=== PATIENT | male | born 1970 | race Caucasian/White ===

== ENCOUNTER 2021-04-20 01:38 | Inpatient (IN) | payer OTHER ==
[~2021-04-20] VITALS: Ht 175.3 cm; Wt 112.7 kg
[2021-04-20] MEDS ORDERED: GABAPENTIN800 MG PO (15:16)
[2021-04-20] MEDS ORDERED: ATORVASTATIN CA40 MG PO (15:17)
[2021-04-20] MEDS ORDERED: ABILIFY 5 MG TAB5 MG PO (15:17)
[2021-04-20] MEDS ORDERED: CYCLOBENZAPRINE10 MG PO (15:18)
[2021-04-20] MEDS ORDERED: DESYREL 50 MG T50 MG PO (15:18)
[2021-04-20] MEDS ORDERED: METFORMIN HCL1000 MG PO (15:19)
[2021-04-20] MEDS ORDERED: SERTRALINE HCL50 MG PO (15:20)
[2021-04-20] MEDS ORDERED: LISINOPRIL10 MG PO (15:22)
[2021-04-20] MEDS ORDERED: FISH OIL 1,0001 EACH PO (15:24)
[2021-04-20] MEDS ORDERED: ASPIRIN81 MG PO (16:24)
[2021-04-20 17:20] LABS: HEMOGLOBIN 16.9 gm/dl (14.0-17.5); RED BLOOD COUNT 5.05 M/UL (4.20-5.50); WHITE BLOOD COUNT 6.8 K/UL (4.5-11.0)
[2021-04-21 07:34] LABS: HEMOGLOBIN 16.2 gm/dl (14.0-17.5); RED BLOOD COUNT 4.85 M/UL (4.20-5.50)
[2021-04-21 08:24] LABS: BUN/CREATININE RATIO 20 (0-10)
[2021-04-22 03:05] LABS: HEMOGLOBIN 15.5 gm/dl (14.0-17.5); RED BLOOD COUNT 4.9 M/UL (4.20-5.50); WHITE BLOOD COUNT 6.2 K/UL (4.5-11.0)
[2021-04-22 03:23] LABS: BUN/CREATININE RATIO 20 (0-10)
[2021-04-23 03:55] LABS: HEMOGLOBIN 16.2 gm/dl (14.0-17.5); RED BLOOD COUNT 4.87 M/UL (4.20-5.50); WHITE BLOOD COUNT 5.6 K/UL (4.5-11.0)
[2021-04-23 04:15] LABS: BUN/CREATININE RATIO 19 (0-10)
[2021-04-23] MEDS ORDERED: NOVOLOG FL100 UNIT/1 INJ (12:17)
[2021-04-23] MEDS ORDERED: LANTUS SOL100 UNIT/1 SQ (12:17)
[2021-04-23] MEDS ORDERED: ELIQUIS 5 MG TAB5 MG PO (12:17)
[2021-04-23] MEDS ORDERED: NITROGLYCERIN0.4 MG SL (12:17)
[2021-04-23] MEDS ORDERED: BETAPACE 80MG T80 MG PO (12:17)
== END 2021-04-23 19:55 | disposition home or self-care (01) | DRG 309 ==
LOC: PROG CARE 15:09
PROVIDERS: Internal Medicine; Physician Assistant Medical; ADMIT Internal Medicine
PROC: 5A2204Z Restoration of Cardiac Rhythm, Single (ICD-10-PCS; principal; 2021-04-20)
PROC: B24BZZZ Ultrasonography of Heart with Aorta (ICD-10-PCS; 2021-04-21)
DX: I48.92 Unspecified atrial flutter (principal); J98.11 Atelectasis; I10 Essential (primary) hypertension; E11.65 Type 2 diabetes mellitus with hyperglycemia; E11.40 Type 2 diabetes mellitus with diabetic neuropathy, unspecified; F17.210 Nicotine dependence, cigarettes, uncomplicated; G47.33 Obstructive sleep apnea (adult) (pediatric); I95.9 Hypotension, unspecified; I47.1 Supraventricular tachycardia; E66.01 Morbid (severe) obesity due to excess calories; E78.5 Hyperlipidemia, unspecified; Z88.0 Allergy status to penicillin; Z88.1 Allergy status to other antibiotic agents; Z90.49 Acquired absence of other specified parts of digestive tract; Z98.890 Other specified postprocedural states; Z79.84 Long term (current) use of oral hypoglycemic drugs; Z82.49 Family history of ischemic heart disease and other diseases of the circulatory system; Z80.8 Family history of malignant neoplasm of other organs or systems; Z79.82 Long term (current) use of aspirin; Z68.36 Body mass index [BMI] 36.0-36.9, adult
CPT/HCPCS: ECHO; 36415; 80048; 80053; 82550; 82553; 82962; 83036; 83735; 84439; 84443; 84484; 85027; 85610; 85730; 93005; 93306; J1644